=== PATIENT | female | born 1970 | race Caucasian/White ===

== ENCOUNTER → 2016-11-22 | Outpatient (CLI) | payer MEDICAID ==
--- NOTE | 2016-11-22 09:43 | BD ---
EXAMINATION TYPE: MG DEXA axial skeleton. DATE OF EXAM: 11/22/2016 7:06 AM CLINICAL HISTORY: Fracture of one rib per order. Height: 66.5 Weight: 282 FRAX RISK QUESTIONS: Alcohol (3 or more units per day): no Family History (Parent hip fracture): no Glucocorticoids (More than 3mos): no (Ex: prednisone, prednisolone, methylprednisolone, dexamethasone, and hydrocortisone). History of Fracture in Adulthood: rib Secondary Osteoporosis: 1. Type 1 Diabetes: no 2. Hyperthyroidism: no 3. Menopause before 45: no 4. Malnutrition: no 5. Chronic liver disease: no Rheumatoid Arthritis: no Current Tobacco Use: no RISK FACTORS HISTORY OF: History of Fracture: yes, rib When: unsure; recently detected on recent CT scan Family History of Osteoporosis: yes, mother Drink Alcohol: no Active: yes Diet low in dairy products/other sources of calcium: somewhat Postmenopausal woman: yes, hysterectomy age 45 Take estrogen and/or progesterone medications: no Lost more than 2 inches in height since high school: no Frequent falls: no Poor Health: somewhat Hyperparathyroidism: no Adrenal Insufficiency: no MEDICATIONS: Prednisone or other steroids: no Thyroid Medications: no Osteoporosis Medications: no Additional Medications: blood pressure meds, multi Vitamin Additional History: Ovarian CA, chemo body aches EXAM MEASUREMENTS: Bone mineral densitometry was performed using the [employer] System. Bone mineral density as measured about the Lumbar spine is: ----- L1-L4(G/cm2): 1.001 T Score Values are as follows: ----- L2: -2.2 ----- L3: -0.7 ----- L4: -1.8 ----- L1-L4: -1.5 Bone mineral density BASELINE Bone mineral density about the R hip (g/cm2): 1.103 Bone mineral density about the L hip (g/cm2): 1.055 T Score values are as follows: -----R Neck: 0.5 -----L Neck: 0.1 -----R Intertrochanter: 1.1 -----L Intertrochanter: 0.7 Bone mineral density BASELINE IMPRESSION: Osteopenia (T Score between -2.5 and -1 as noted by T score values overall in the low back. There is slightly increased risk of fracture and the patient may be considered for treatment. Re-Screen 1-2 ye ars. NOTE: T-SCORE=SD OF THE YOUNG ADULT MEAN.
== END | disposition home or self-care (01) ==
LOC: RADBDWWP 07:04
PROVIDERS: ATTEND Family Medicine
DX: M85.88 Other specified disorders of bone density and structure, other site (principal); S22.39XD Fracture of one rib, unspecified side, subsequent encounter for fracture with routine healing
CPT/HCPCS: 77080

== ENCOUNTER → 2018-05-22 | Outpatient (CLI) | payer BC ==
--- NOTE | 2018-05-23 08:34 | XR ---
EXAMINATION TYPE: XR knee complete RT DATE OF EXAM: 05/22/2018 CLINICAL HISTORY: pain TECHNIQUE: Three views of the right knee are obtained. COMPARISON: None. FINDINGS: There is no acute fracture/dislocation. The tri-compartment joint spaces appear within no rmal limits. The overlying soft tissue appears unremarkable. IMPRESSION: There is no acute fracture or dislocation.ICD 10 NO FRACTURE, INITIAL EVALUATION
--- NOTE | 2018-05-23 08:35 | XR ---
EXAMINATION TYPE: XR femur RT DATE OF EXAM: 05/22/2018 CLINICAL HISTORY: pain TECHNIQUE: Two views of the right femur are obtained. COMPARISON: None. FINDINGS: There is no acute fracture or dislocation seen of the femur. The hip and knee joints appear within normal limits. The overlying soft tissue appears unremarkable. IMPRESSION: There is no acute fracture or dislocation seen of the femur. ICD 10 NO FRACTURE, INITIAL EVALUATION
--- NOTE | 2018-05-23 08:35 | XR ---
EXAMINATION TYPE: XR tibia fibula RT DATE OF EXAM: 05/22/2018 CLINICAL HISTORY: pain TECHNIQUE: AP and lateral images of the right tibia and fibula are obtained. COMPARISON: None. FINDINGS: There is no acute fracture/dislocation evident. The joint spaces appear within normal deleon its. The overlying soft tissue appears unremarkable. IMPRESSION: There is no acute fracture or dislocation seen. ICD 10 NO FRACTURE, INITIAL EVALUATION
== END | disposition home or self-care (01) ==
LOC: RADXRMAIN 17:30
PROVIDERS: ATTEND Physician Assistant Medical
DX: M79.604 Pain in right leg (principal); M25.561 Pain in right knee

== ENCOUNTER → 2018-06-04 | Outpatient (CLI) | payer BC ==
--- NOTE | 2018-06-04 08:40 | MM ---
Reason for exam: additional evaluation requested from prior study. Last mammogram was performed 1 year and 11 months ago. History: Patient is postmenopausal. Family history of breast cancer in paternal grandmother. Physical Findings: Nurse did not find any significant physical abnormalities on exam. MG 3D Diag Mammo W/Cad ELLEN Bilateral CC and MLO view(s) were taken. Prior study comparison: June 21, 2016, bilateral MG 3d diag mammo w/cad ELLEN. October 22, 2013, mammogram, performed at [facility]. The breast tissue is heterogeneously dense. This may lower the sensitivity of mammography. There is no dominant lesion. Right mediport catheter axillary region. These results were verbally communicated with the patient and result sheet given to the patient on 06/04/18. ASSESSMENT: Benign, BI-RAD 2 RECOMMENDATION: Routine screening mammogram of both breasts in 1 year.
== END | disposition home or self-care (01) ==
LOC: RADMAMWWP 07:35
PROVIDERS: ATTEND Family Medicine
DX: Z12.31 Encounter for screening mammogram for malignant neoplasm of breast (principal); Z15.01 Genetic susceptibility to malignant neoplasm of breast
CPT/HCPCS: 77062; 77066

== ENCOUNTER 2018-07-03 08:30 | Day surgery (SDC) | payer BC ==
[2018-07-02 09:13] VITALS: BMI 45.1
[~2018-07-03 08:30] MED LIST: HYDROmorphone 0.5 MG/0.5 ML SYRINGE IVP PRN; LACTATED RINGERS 1,000 ML IV SCH; LIDOCAINE 1% 20 ML VIAL (10MG/ML) FOR IV START INTRADERMA PRN
[2018-07-03 08:54] VITALS: TEMP 98.2
[2018-07-03] MEDS ORDERED: PROPOFOL 10 MG/ML 20 ML VIAL IV ONE (10:42)
[2018-07-03] MEDS ORDERED: LIDOCAINE 1% INJ 10MG/ML (20 ML MDV) ONE (10:42)
[2018-07-03] MEDS ORDERED: fentaNYL (PF) 50 MCG/ML 2 ML AMP ONE (10:42)
[2018-07-03] MEDS ORDERED: GLYCOPYRROLATE 0.2 MG/ML 2 ML VIAL ONE (10:42)
[2018-07-03] MEDS ORDERED: MIDAZOLAM 2 MG/2 ML VIAL ONE (10:42)
--- NOTE | 2018-07-03 10:50 | P.GSHP ---
History of Present Illness H&P Date: 07/03/18 Chief Complaint: Screening colonoscopy This a 48-year-old female who presents today for screening colonoscopy. She denies any significant GI complaints. Past Medical History Past Medical History: Cancer, GERD/Reflux, Hypertension, Osteoarthritis (OA) Additional Past Medical History / Comment(s): ovarian cancer,MIGRAINE HEADACHE History of Any Multi-Drug Resistant Organisms: None Reported Past Surgical History: Appendectomy, Bowel Resection, Section, Cholecystectomy, Hernia Repair, Hysterectomy Additional Past Surgical History / Comment(s): Open appendectomy for perforated appendeX, Past Anesthesia/Blood Transfusion Reactions: Previous Problems w/ Anesthesia, Postoperative Nausea & Vomiting (PONV) Additional Past Anesthesia/Blood Transfusion Reaction / Comment(s): BLOOD TRANSFUSION WITH NO PROBLEM Smoking Status: Former smoker - Past Family History Father Additional Family Medical History / Comment(s): gastric ulcers Mother Family Medical History: Cancer Additional Family Medical History / Comment(s): TONGUE AND THROAT CANCER Medications and Allergies Home Medications Medication Instructions Recorded Confirmed Type Multivit with Calcium,Iron,Min 1 tab PO DAILY 04/06/15 07/02/18 History [Women's Daily Multivitamin] Carvedilol [Coreg] 25 mg PO BID 10/14/15 07/02/18 History Ibuprofen [Motrin] 800 mg PO Q6HR PRN 07/02/18 07/02/18 History Losartan/Hydrochlorothiazide 1 each PO DAILY 07/02/18 07/02/18 History [Losartan-Hctz 50-12.5 mg Tab] Mirabegron [Myrbetriq] 25 mg PO HS 07/02/18 07/02/18 History Venlafaxine HCl [Effexor XR] 150 mg PO DAILY 07/02/18 07/02/18 History Allergies Allergy/AdvReac Type Severity Reaction Status Date / Time acetaminophen [From Tylenol] AdvReac SEVERE Verified 07/02/18 08:56 HEADACHE hydrocodone [From [place]] AdvReac Nausea & Verified 07/03/18 08:54 Vomiting Surgical - Exam Vital Signs Temp Pulse Resp BP Pulse Ox 98.2 F 82 16 132/82 94 L 07/03/18 08:52 07/03/18 08:52 07/03/18 08:52 07/03/18 08:52 07/03/18 08:52 - General well developed, well nourished - Eyes PERRL - ENT normal pinna - Neck no masses - Respiratory normal expansion - Cardiovascular Rhythm: regular - Abdomen Abdomen: soft, non tender Assessment and Plan Assessment: We'll perform screening colonoscopy.
--- NOTE | 2018-07-03 11:05 | P.OP ---
Date of Procedure: 07/03/18 Preoperative Diagnosis: Screening colonoscopy Postoperative Diagnosis: Normal colon Procedure(s) Performed: Colonoscopy Anesthesia: MAC Surgeon: Jose Lai Pathology: none sent Condition: stable Disposition: PACU Description of Procedure: PROCEDURE: The patient was placed on the endoscopy table in the lateral position. Digital rectal examination was performed which revealed no abnormalities. . Flexible colonoscope was then placed in the patient's anus and passed throughout the entire colon. The ileocecal valve was visualized. The cecum, ascending, transverse, descending and sigmoid colon were normal. The rectum was normal as well. There were no masses, polyps or diverticula noted in the entire colon. SUMMARY OF FINDINGS: Normal colonoscopy.
[2018-07-03 11:42] VITALS: BP 114/75; PULSE 81; RESP 16
== END 2018-07-03 11:59 | disposition home or self-care (01) ==
LOC: ORWHC2ENDO 08:30
PROVIDERS: ATTEND Surgery
DX: Z12.11 Encounter for screening for malignant neoplasm of colon (principal); I10 Essential (primary) hypertension; K21.9 Gastro-esophageal reflux disease without esophagitis; M19.90 Unspecified osteoarthritis, unspecified site; G43.909 Migraine, unspecified, not intractable, without status migrainosus; R18.8 Other ascites; E66.9 Obesity, unspecified; Z90.49 Acquired absence of other specified parts of digestive tract; Z79.899 Other long term (current) drug therapy; Z85.43 Personal history of malignant neoplasm of ovary; Z87.891 Personal history of nicotine dependence; Z88.5 Allergy status to narcotic agent; Z88.6 Allergy status to analgesic agent; Z68.42 Body mass index [BMI] 45.0-49.9, adult
CPT/HCPCS: 45378; J2250; J2001; J3010; J2704

== ENCOUNTER 2018-09-07 00:17 | Emergency (ER) | payer BC ==
[2018-09-07] MEDS ORDERED: ONDANSETRON ODT 4 MG TAB PO STA (02:07)
[2018-09-07] MEDS ORDERED: MORPHINE SULFATE 4 MG/ML SYRINGE IV STA ×2 (02:28→07:24)
[2018-09-07] MEDS ORDERED: ONDANSETRON 4 MG/2 ML VIAL IVP STA ×2 (02:28→07:24)
--- NOTE | 2018-09-07 02:31 | ED ---
Abdominal Pain HPI - General Chief Complaint: Abdominal Pain Stated Complaint: nausea, vomiting, constipation Time Seen by Provider: 09/07/18 01:41 Source: patient Mode of arrival: ambulatory Limitations: no limitations - History of Present Illness Initial Comments: This patient is 48-year-old woman who presents to be evaluated for abdominal pain. Patient states she has been getting this every few weeks, in association with her Avastin therapy. Patient states that she'll get diffuse abdominal cramping, and a feeling like she is constipated. She is only to pass some small hard stools. She will then also have nausea and vomiting. She states the pain seems to come in waves. Cramping in character. It is moderate intensity. She has not found any worsening or relieving factors. At times she feels in her back. MD Complaint: abdominal pain Onset/Timin -: days(s) Location: diffuse Radiation: back Migration to: periumbilical Severity: moderate Quality: cramping Consistency: colicky Improves With: nothing Worsens With: nothing Associated Symptoms: nausea, vomiting, constipation - Related Data Home Medications Medication Instructions Recorded Confirmed Multivit with Calcium,Iron,Min 1 tab PO DAILY 04/06/15 07/02/18 [Women's Daily Multivitamin] Carvedilol [Coreg] 25 mg PO BID 10/14/15 07/02/18 Ibuprofen [Motrin] 800 mg PO Q6HR PRN 07/02/18 07/02/18 Losartan/Hydrochlorothiazide 1 each PO DAILY 07/02/18 07/02/18 [Losartan-Hctz 50-12.5 mg Tab] Mirabegron [Myrbetriq] 25 mg PO HS 07/02/18 07/02/18 Venlafaxine HCl [Effexor XR] 150 mg PO DAILY 07/02/18 07/02/18 Allergies Allergy/AdvReac Type Severity Reaction Status Date / Time acetaminophen [From Tylenol] AdvReac SEVERE Verified 09/07/18 00:32 HEADACHE hydrocodone [From [place]] AdvReac Nausea & Verified 09/07/18 00:32 Vomiting Review of Systems ROS Statement: Those systems with pertinent positive or pertinent negative responses have been documented in the HPI. ROS Other: All systems not noted in ROS Statement are negative. Constitutional: Denies: fever, chills, weakness Respiratory: Denies: cough, dyspnea Cardiovascular: Denies: chest pain, palpitations Gastrointestinal: Reports: as per HPI, abdominal pain, nausea, constipation. Denies: diarrhea, melena, hematochezia Genitourinary: Denies: dysuria, hematuria Musculoskeletal: Reports: as per HPI, back pain Skin: Denies: rash Neurological: Denies: headache, weakness, numbness Psychiatric: Reports: anxiety Past Medical History Past Medical History: Cancer, GERD/Reflux, Hypertension, Osteoarthritis (OA) Additional Past Medical History / Comment(s): ovarian cancer,MIGRAINE HEADACHE History of Any Multi-Drug Resistant Organisms: None Reported Past Surgical History: Appendectomy, Bowel Resection, Section, Cholecystectomy, Hernia Repair, Hysterectomy Additional Past Surgical History / Comment(s): Open appendectomy for perforated appendeX, Past Anesthesia/Blood Transfusion Reactions: Previous Problems w/ Anesthesia, Postoperative Nausea & Vomiting (PONV) Additional Past Anesthesia/Blood Transfusion Reaction / Comment(s): BLOOD TRANSFUSION WITH NO PROBLEM Past Psychological History: Depression Smoking Status: Former smoker - Past Family History Father Additional Family Medical History / Comment(s): gastric ulcers Mother Family Medical History: Cancer Additional Family Medical History / Comment(s): TONGUE AND THROAT CANCER General Exam Limitations: no limitations General appearance: alert, in no apparent distress, obese Head exam: Present: atraumatic Eye exam: Present: normal appearance. Absent: scleral icterus, conjunctival injection ENT exam: Present: normal oropharynx Respiratory exam: Present: normal lung sounds bilaterally. Absent: respiratory distress, wheezes, rales, rhonchi, stridor Cardiovascular Exam: Present: regular rate, normal rhythm, normal heart sounds. Absent: systolic murmur, diastolic murmur, rubs, gallop GI/Abdominal exam: Present: soft, normal bowel sounds. Absent: distended, tenderness, guarding, rebound, rigid, mass, pulsatile mass, hernia Extremities exam: Present: normal inspection, normal capillary refill. Absent: pedal edema, calf tenderness Back exam: Present: normal inspection. Absent: CVA tenderness (R), CVA tenderness (L) Neurological exam: Present: alert Skin exam: Present: warm, dry, intact, normal color. Absent: rash Course Vital Signs 09/07/18 09/07/18 00:26 04:14 Temperature 97.3 F L Pulse Rate 73 68 Respiratory 20 16 Rate Blood Pressure 159/114 175/107 O2 Sat by Pulse 97 94 L Oximetry Medical Decision Making - Medical Decision Making Patient's 48-year-old woman with abdominal complaints going on for about 24 hours. She had resolution of all her symptoms with antiemetic and analgesic. She did request that some IV fluids that she had not been keeping fluids down, and then following that she was feeling well and wanted to go home. Discussed return parameters and appropriate follow-up. - Lab Data Result diagrams: 09/07/18 02:14 09/07/18 02:14 Lab Results 09/07/18 09/07/18 Range/Units 02:14 02:14 WBC 10.0 (3.8-10.6) k/uL RBC 4.77 (3.80-5.40) m/uL Hgb 15.0 (11.4-16.0) gm/dL Hct 47.4 H (34.0-46.0) % MCV 99.3 (80.0-100.0) fL MCH 31.5 (25.0-35.0) pg MCHC 31.7 (31.0-37.0) g/dL RDW 16.2 H (11.5-15.5) % Plt Count 161 (150-450) k/uL Neutrophils % 79 % Lymphocytes % 12 % Monocytes % 6 % Eosinophils % 3 % Basophils % 0 % Neutrophils # 7.9 H (1.3-7.7) k/uL Lymphocytes # 1.2 (1.0-4.8) k/uL Monocytes # 0.6 (0-1.0) k/uL Eosinophils # 0.3 (0-0.7) k/uL Basophils # 0.0 (0-0.2) k/uL Anisocytosis Slight Macrocytosis Slight Sodium 139 (137-145) mmol/L Potassium 4.1 (3.5-5.1) mmol/L Chloride 103 (98-107) mmol/L Carbon Dioxide 24 (22-30) mmol/L Anion Gap 12 mmol/L BUN 26 H (7-17) mg/dL Creatinine 0.96 (0.52-1.04) mg/dL Est GFR (CKD-EPI)AfAm 80 (>60 ml/min/1.73 sqM) Est GFR (CKD-EPI)NonAf 69 (>60 ml/min/1.73 sqM) Glucose 159 H (74-99) mg/dL Calcium 10.6 H (8.4-10.2) mg/dL Total Bilirubin 0.7 (0.2-1.3) mg/dL AST 32 (14-36) U/L ALT 34 (9-52) U/L Alkaline Phosphatase 131 H (38-126) U/L Total Protein 7.1 (6.3-8.2) g/dL Albumin 4.1 (3.5-5.0) g/dL Amylase 44 (30-110) U/L Lipase 72 (23-300) U/L - EKG Data -: EKG Interpreted by Ut EKG shows normal: sinus rhythm, axis (Normal), intervals (Normal), QRS complexes (Normal), ST-T waves (There are anterolateral ST depressions.) Rate: normal (Rate 60 bpm) When compared to previous EKG there are: other (There is a comparison ECG from 2015 which does show T inversions in V2 through 4. There is additional T inversion in V5 is uncertain whether this is due to lead placement.) Disposition Clinical Impression: Abdominal pain Disposition: HOME SELF-CARE Condition: Good Instructions: Abdominal Pain (ED) Is patient prescribed a controlled substance at d/c from ED?: No Referrals: Ned Trujillo III, MD [Primary Care Provider] - 1-2 days
[2018-09-07 02:36] LABS: Albumin 4.1 g/dL (3.5-5.0); Calcium 10.6 mg/dL (8.4-10.2); Potassium 4.1 mmol/L (3.5-5.1); Total Bilirubin 0.7 mg/dL (0.2-1.3); Total Protein 7.1 g/dL (6.3-8.2)
[2018-09-07 02:57] LABS: Anisocytosis Slight; Basophils % (A) 0 %; Eosinophils # (A) 0.3 k/uL (0-0.7); Eosinophils % (A) 3 %; HCT 47.4 % (34.0-46.0); Lymphocytes # (A) 1.2 k/uL (1.0-4.8); Lymphocytes % (A) 12 %; MCH 31.5 pg (25.0-35.0); MCHC 31.7 g/dL (31.0-37.0); MCV 99.3 fL (80.0-100.0); Macrocytosis Slight; Mean Platelet Volume 7.4; Monocytes # (A) 0.6 k/uL (0-1.0); Monocytes % (A) 6 %; Neutrophils # (A) 7.9 k/uL (1.3-7.7); Neutrophils % (A) 79 %; Platelet Count 161 k/uL (150-450); RBC 4.77 m/uL (3.80-5.40); RDW 16.2 % (11.5-15.5)
[2018-09-07] MEDS ORDERED: CARVEDILOL 12.5 MG TAB PO STA (04:19)
[2018-09-07] MEDS ORDERED: SODIUM CHLORIDE 0.9% 1,000 ML IV ONE (04:53)
[2018-09-07 07:36] VITALS: BP 136/79; PULSE 98; RESP 18; TEMP 97.8
== END 2018-09-07 07:34 | disposition home or self-care (01) ==
LOC: EC 00:17
DX: R10.84 Generalized abdominal pain (principal); R11.2 Nausea with vomiting, unspecified; K59.00 Constipation, unspecified; M54.9 Dorsalgia, unspecified; I10 Essential (primary) hypertension; F32.9 Major depressive disorder, single episode, unspecified; Z87.891 Personal history of nicotine dependence; Z88.5 Allergy status to narcotic agent; Z88.6 Allergy status to analgesic agent; Z79.899 Other long term (current) drug therapy; Z85.43 Personal history of malignant neoplasm of ovary; Z90.49 Acquired absence of other specified parts of digestive tract; Z83.79 Family history of other diseases of the digestive system
CPT/HCPCS: 36415; 80053; 82150; 83690; 85025; 99284; 96374; 96375; 96376; J2270; J2405